=== PATIENT | female | born 1980 | race Two or more races ===

== ENCOUNTER 2020-01-07 01:01 | Emergency (ER) | payer OTHER ==
[~2020-01-07] VITALS: Ht 177.8 cm; Wt 97.5 kg
[2020-01-07] MEDS ORDERED: ZYRTEC10 M3 PO (01:25)
[2020-01-07] MEDS ORDERED: FLONASE16 GM NS (01:25)
[2020-01-07] MEDS ORDERED: SYMBICORT 16010.2 GM IH (01:25)
[2020-01-07] MEDS ORDERED: TOBRAMYCIN-DEXAM5 ML OP (01:57)
== END 2020-01-07 02:04 | disposition home or self-care (01) ==
LOC: ER 01:01
DX: T78.49XA Other allergy, initial encounter (principal); H57.89 Other specified disorders of eye and adnexa

== ENCOUNTER → 2020-01-09 | Outpatient (CLI) | payer OTHER ==
[~2020-01-09] MED LIST: FLONASE16 GM NS; SYMBICORT 16010.2 GM IH; TOBRAMYCIN-DEXAM5 ML OP; ZYRTEC10 M3 PO
== END | disposition home or self-care (01) ==
LOC: PRENATAL 13:00
PROVIDERS: ATTEND Obstetrics & Gynecology Maternal & Fetal Medicine
DX: O26.842 Uterine size-date discrepancy, second trimester (principal); O98.512 Other viral diseases complicating pregnancy, second trimester; O35.3XX1 Maternal care for (suspected) damage to fetus from viral disease in mother, fetus 1; Z36.89 Encounter for other specified antenatal screening; Z3A.17 17 weeks gestation of pregnancy

== ENCOUNTER 2020-06-03 11:15 | Inpatient (IN) | payer OTHER ==
[~2020-06-03] VITALS: Ht 177.8 cm; Wt 112.9 kg
[2020-06-03] MEDS ORDERED: NASAL MIST126 ML (13:49)
[2020-06-17] MEDS ORDERED: PRENATAL TABLE1 EAC3 PO (06:02)
== END 2020-06-20 13:08 | disposition home or self-care (01) | DRG 788 ==
LOC: LDR 06-17 05:25 → OB/GYN 06-17 11:15 → O/R 06-17 17:23 → SURG-SUITE 06-17 19:03
PROVIDERS: ADMIT Obstetrics & Gynecology; ATTEND Obstetrics & Gynecology
PROC: 3E033VJ Introduction of Other Hormone into Peripheral Vein, Percutaneous Approach (ICD-10-PCS; 2020-06-17)
PROC: 4A1HXFZ Monitoring of Products of Conception, Cardiac Rhythm, External Approach (ICD-10-PCS; 2020-06-17)
PROC: 10D00Z1 Extraction of Products of Conception, Low, Open Approach (ICD-10-PCS; principal; 2020-06-17 15:00)
DX: O33.8 Maternal care for disproportion of other origin (principal); O61.0 Failed medical induction of labor; Z3A.40 40 weeks gestation of pregnancy; Z37.0 Single live birth

== ENCOUNTER 2020-06-15 09:53 | Outpatient (CLI) | payer OTHER ==
[~2020-06-15 09:53] MED LIST changes: +NASAL MIST126 ML
== END 2020-06-15 10:37 | disposition home or self-care (01) ==
LOC: NST 09:53
PROVIDERS: ATTEND Obstetrics & Gynecology
DX: Z34.83 Encounter for supervision of other normal pregnancy, third trimester (principal)

== ENCOUNTER → 2020-09-14 08:00 | Outpatient (CLI) | payer OTHER ==
[~2020-09-14 08:00] MED LIST changes: +PRENATAL TABLE1 EAC3 PO
== END | disposition home or self-care (01) ==
LOC: PPH VACUNA 08:00
DX: Z23 Encounter for immunization (principal)

== ENCOUNTER 2021-04-27 09:31 | Outpatient (CLI) | payer OTHER | END 2021-04-27 09:44 | disposition home or self-care (01) | LOC: MAMO-SONO 09:31 | PROVIDERS: ATTEND Obstetrics & Gynecology | DX: N63.21 Unspecified lump in the left breast, upper outer quadrant (principal); N63.12 Unspecified lump in the right breast, upper inner quadrant ==